=== PATIENT | female | born 2000 | race American Indian/Alaskan Native ===

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

== ENCOUNTER 2020-12-09 07:35 | Emergency (ER) | payer MEDICAID ==
[2020-12-09 07:48] VITALS: BP 113/57
--- NOTE | 2020-12-09 08:07 | Emergency Department Report ---
Upper Respiratory HPI - HPI Chief Complaint: Upper Respiratory Infection Stated Complaint: RUNNY NOSE Time Seen by Provider: 12/09/20 07:51 Duration: 3 Days URI Symptoms: Rhinorrhea: Yes, Sore Throat: No, Ear Pain: No, Cough: No, Shortness of Breath: No, Sick Contacts: No, Unable to Take Fluids: No, Urine Output Abnormal: No, Listless Behavior: No Other History: This is a 20-year-old female nontoxic, well nourished in appearance, no acute signs of distress presents to the ED with c/o of runny nose x3 days and is here for a work excuse. Patient denies any other symptoms. Denies any cough or URI symptoms. Patient denies any recent travels, long car, recent hospital stays. Patient denies any calf pain or calf tenderness. Patient denies any chest pain, short of breath, fever, chills, nausea, vomiting, hemoptysis, numbness, tingling, headache or stiff neck. - Home Meds and Allergies Home Medications: Previous Rx's Medication Instructions Recorded Last Taken Type Albuterol Mdi (or & Nicu Only) 1 puff IH Q4H PRN #1 inha 07/23/17 Unknown Rx [ProAir HFA Inhaler] Benzocaine/Menthol [Cepacol Sore 1 each MM Q4H PRN #1 box 07/23/17 Unknown Rx Throat Lozenge] Ibuprofen [Motrin] 800 mg PO Q8HR PRN #25 tablet 07/23/17 Unknown Rx Phenylephrine/Dm/Acetaminop/GG 10 ml PO Q4H PRN #1 liquid 07/23/17 Unknown Rx [Mucinex Dhfy-Iyu-Cjtwcrnbhu Lq] cephALEXin [Keflex] 500 mg PO Q12HR #14 cap 07/23/17 Unknown Rx Allergies/Adverse Reactions: Allergies Allergy/AdvReac Type Severity Reaction Status Date / Time [place] Allergy Hives Uncoded 07/23/17 02:27 ED Review of Systems ROS: Stated complaint: RUNNY NOSE Other details as noted in HPI Comment: All other systems reviewed and negative Constitutional: denies: chills, fever Eyes: denies: eye pain, eye discharge, vision change ENT: denies: ear pain, throat pain Respiratory: denies: cough, shortness of breath, wheezing Cardiovascular: denies: chest pain, palpitations Endocrine: no symptoms reported Gastrointestinal: denies: abdominal pain, nausea, diarrhea Genitourinary: denies: urgency, dysuria, discharge Musculoskeletal: denies: back pain, joint swelling, arthralgia Skin: denies: rash, lesions Neurological: denies: headache, weakness, paresthesias Psychiatric: denies: anxiety, depression Hematological/Lymphatic: denies: easy bleeding, easy bruising ED Past Medical Hx - Past Medical History Previous Medical History?: No - Surgical History Past Surgical History?: No - Social History Smoking Status: Never Smoker Substance Use Type: Alcohol - Medications Home Medications: Home Medications Medication Instructions Recorded Confirmed Last Taken Type Albuterol Mdi (or & Nicu Only) 1 puff IH Q4H PRN #1 inha 07/23/17 Unknown Rx [ProAir HFA Inhaler] Benzocaine/Menthol [Cepacol Sore 1 each MM Q4H PRN #1 box 07/23/17 Unknown Rx Throat Lozenge] Ibuprofen [Motrin] 800 mg PO Q8HR PRN #25 tablet 07/23/17 Unknown Rx Phenylephrine/Dm/Acetaminop/GG 10 ml PO Q4H PRN #1 liquid 07/23/17 Unknown Rx [Mucinex Olcw-Ivl-Nvswqhuuxm Lq] cephALEXin [Keflex] 500 mg PO Q12HR #14 cap 07/23/17 Unknown Rx ED Bronchiolitis Physical Exam - Exam General: Vital signs noted. No distress. Alert and acting appropriately. HEENT: No Pharyngeal Erythema, No Conjuctival Injection, No Dry Mucous Membranes, No Rhinorrhea Ear: Neither TM Bulge, Neither TM Erythema, Neither EAC Discharge Neck: No Adenopathy, No Rigidity Lungs: Yes Clear Lung Sounds, Yes Good Air Exchange, No Wheezes, No Stridor, No Cough, No Nasal Flaring, No Retractions, No Use of Accessory Muscles Heart: Yes Regular, No Murmur Abdomen: Yes Normal Bowel Sounds, No Tenderness, No Peritoneal Signs Skin: No Rash, No Eczema Neurologic: Alert and oriented, no deficits. Musculoskeletal: Unremarkable. ED Physical Exam - General Limitations: No Limitations ED Course Vital Signs 12/09/20 07:47 Temperature 97.9 F Pulse Rate 68 Respiratory 16 Rate Blood Pressure 113/57 [Right] O2 Sat by Pulse 100 Oximetry - Reevaluation(s) Reevaluation #1: 12/09/20 08:06 Patient is speaking in full sentences with no signs of distress noted. ED Medical Decision Making - Medical Decision Making Patient is stable and was examined by me. Vitals stable. Patient is nonfebrile and normal heart rate. Patient was instructed Follow-up with a primary care doctor in 3-5 days or if symptoms worsen and continue return to emergency room as soon as possible. At time time of discharge, the patient does not seem toxic or ill in appearance. No acute signs of distress noted. Patient agrees to discharge treatment plan of care. No further questions noted by the patient.nt. Critical care attestation.: If time is entered above; I have spent that time in minutes in the direct care of this critically ill patient, excluding procedure time. ED Disposition Clinical Impression: Rhinorrhea, Encounter to obtain excuse from work Disposition: MED SCREENING EXAM-LEFT Is pt being admited?: No Does the pt Need Aspirin: No Condition: Stable Additional Instructions: Follow-up with a primary care doctor in 3-5 days or if symptoms worsen and continue return to emergency room as soon as possible. Referrals: PRIMARY MD MITA [Referring] - 3-5 Days MANINDER RUSSELL MD [Staff Physician] - 3-5 Days Time of Disposition: :07
== END 2020-12-09 08:05 | disposition left against medical advice (07) ==
LOC: ED 07:35
DX: R09.89 Other specified symptoms and signs involving the circulatory and respiratory systems (principal); Z53.21 Procedure and treatment not carried out due to patient leaving prior to being seen by health care provider

== ENCOUNTER 2022-01-12 13:08 | Emergency (ER) | payer SELFPAY ==
--- NOTE | 2022-01-12 13:34 | Emergency Department Report ---
Stated Complaint: STD CHECK Time Seen by Provider: 01/12/22 13:33 - HPI History of Present Illness: Here for routine std testing p having sex yesterday no discharge no pain - ROS Review of Systems: none - Exam Vital Signs: Vital Signs 01/12/22 13:36 Temperature 98.1 F Pulse Rate 60 Respiratory 16 Rate Blood Pressure 103/59 [Right] O2 Sat by Pulse 98 Oximetry Physical Exam: a/o abd snt no cva tenderness MSE screening note: Focused history and physical exam performed. Due to findings the following was ordered: referral to obgyn for eval and her annual std check ED Disposition for MSE Clinical Impression: Concern about STD in female without diagnosis Disposition: 01 HOME / SELF CARE / HOMELESS Is pt being admited?: No Does the pt Need Aspirin: No Condition: Stable Referrals: DYLON HIDLAGO MD [Staff Physician] - 3-5 Days Time of Disposition: 13:34
[2022-01-12 13:37] VITALS: BP 103/59
== END 2022-01-12 14:23 | disposition home or self-care (01) ==
LOC: ED 13:08
DX: Z11.3 Encounter for screening for infections with a predominantly sexual mode of transmission (principal)
CPT/HCPCS: 99282